=== PATIENT | male | born 1970 | race Caucasian/White ===

== ENCOUNTER 2023-03-13 14:05 | Emergency (ER) | payer SELFPAY ==
[2023-03-13 14:28] VITALS: BP 185/96; PULSE 86; RESP 18; TEMP 36.7; O2SAT 99
[2023-03-13 15:24] LABS: Basophils # 0.1 10^3/uL (0.0-0.1); Basophils % 0.8 %; Eosinophils # 0.2 10^3/uL (0.0-0.8); Eosinophils % 2.3 %; Hematocrit 41.2 % (37-53); Lymphocytes % 15.7 %; Mean Corpuscular HGB Conc 34.5 g/dL (30-55); Mean Corpuscular Hemoglobin 30.5 pg (27-33); Mean Corpuscular Volume 88.6 fl (82-101); Mean Platelet Volume 11.8 fL (7.4-10.4); Monocytes # 0.8 10^3/uL (0.2-0.9); Monocytes % 11.3 %; Neutrophils # 4.59 10^3/uL (1.8-7.7); Neutrophils % 69.3 %; Nucleated Red Blood Cells % 0 %; Platelet Count 272 10^3/cmm (157-399); Red Blood Count 4.65 10^6/uL (3.85-5.65); Red Cell Distribution Width 12.1 % (12.1-15.1); White Blood Count 6.62 10^3/uL (3.29-11.43)
--- NOTE | 2023-03-13 15:35 | USR_ITS ---
PROCEDURE INFORMATION: Exam: US Right Non-Vascular Joint or Other Extremity Structure Exam date and time: 03/13/2023 4:33 PM Age: 52 years old Clinical indication: Pain; Hip; Right; Prior surgery; Surgery date: 6+ months; Surgery type: Necrotizing fascitis in RT leg; Additional info: R groin abscess TECHNIQUE: Imaging protocol: Right US joint or other nonvascular extremity structure or structures. Real-time ultrasound with image documentation. Limited study. Exam focused on the lower extremity in the region of clinical interest. COMPARISON: No relevant prior studies available. FINDINGS: Soft tissues: Targeted imaging of the right groin. Approximate 2.5 x 2.9 x 6.2 cm in homogeneous irregular-shaped complicated soft tissue fluid collection. No internal vascularity. US/US soft tissue/extremity 00056 IMPRESSION: 1. 6.2 cm complicated soft tissue fluid collection in the right groin. This could represent a hematoma or abscess.
--- NOTE | 2023-03-13 15:36 | ED_ITS ---
HPI - Skin/Abscess/Foreign Bdy General: Chief complaint: Skin/Abscess/Foreign Body Stated complaint: groin infection Time Seen by Provider: 03/13/23 14:50 Source: patient Mode of arrival: ambulatory History of Present Illness: 52-year-old male presents emergency room with swelling in the right groin. 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 It is tender to the touch mildly reddened he denies any fever sweats or chills at home no drainage from the wound. He did have a small abscess in the left axilla that he incised and drained with a pen at home. MD complaint: abscess/boil Onset (ago): week(s) (2) Severity: moderate Quality: sharp Pain Consistency: constant Relieving factors: none Exacerbating factors: palpation Associated symptoms: Deny arthralgias, chills, cough, fever(s), itching, myalgias, nausea, rigidity, short of breath or vomiting Review of Systems Const: Denies: fever(s) or chills Card: Denies: chest pain Resp: Denies: dyspnea GI: Denies: nausea or vomiting : Denies: dysuria, urinary frequency or urinary urgency Musc: Denies: neck pain or back pain Skin/Breast: Denies: rash PFS ED PFSH: Medical History (Updated 03/13/23 @ 17:05 by Juanpablo Lopez DO) Diabetes Physical Exam Const: GENERAL APPEARANCE: cooperative and comfortable ORIENTATION/CONSCIOUSNESS: Yes awake, Yes oriented to person, Yes oriented to pl duc and Yes oriented to time HENMT: COMMON NORMALS: normocephalic, atraumatic and hearing grossly normal bilaterally HEAD & SCALP: normocephalic and atraumatic Resp: COMMON NORMALS: normal respiratory effort, No retractions, No use of accessory muscles and clear to auscultation bilaterally AUSCULTATION: clear to auscultation bilaterally Cardio: COMMON NORMALS: regular rate, regular rhythm and No murmurs present (Cardio) RATE: regular rate RHYTHM: regular rhythm GI: COMMON NORMALS: Soft to palpation and No hepatosplenomegaly present AUSCULTATION: Yes normoactive bowel sounds PALPATION: Yes Soft to palpation, No Tenderness to palpation present (GI), No Guarding due to palpation present (GI) and Yes No hepatosplenomegaly present Extremity: COMMON NORMALS: normal to inspection, capillary refill normal, no clubbing, cyanosis or edema, no calf tenderness and no pedal edema Neuro: SENSORIUM/ORIENTATION: Yes oriented to person, Yes oriented to place and Yes oriented to time Skin: OTHER: Reason nodular mass within the right ankle area about 6 inches of the leg 2 to 3 inches in width exquisitely tender to the touch. Course Vital Signs: Vital signs: Vital Signs Temperature 98.0 F 03/13/23 14:28 Pulse Rate 86 03/13/23 14:28 Respiratory Rate 18 03/13/23 14:28 Blood Pressure 185/96 03/13/23 14:28 Pulse Oximetry 99 03/13/23 14:28 Oxygen Delivery Me thod Room Air 03/13/23 14:28 MDM - Skin/Abscess/Foreign Bdy Medicial Decision Making Ultrasound reviewed. Question hematoma or abscess. It is not red and inflamed and he is normal white count. It is within scar tissue of his previous debridement for necrotizing fasciitis. It is mildly tender to the touch and appears to be mostly exteriorized does not appear to be in the deep tissue. Discussed with on-call surgery at this point did not think it is emergent but it does not need to be drained. We will start him on some oral antibiotics pain medications and then have him follow-up with surgery tomorrow we confirmed an appointment tomorrow at the general surgery office and relayed to the patient. Return if he has fevers. Dr. Le is planning to address as an outpatient setting. Medical Records I reviewed the patient's medical records. Lab Data I reviewed the patient's lab results. 03/13/23 15:05 03/13/23 15:05 Radiology Impressions Soft Tissue Ultrasound 03/13/23 15:35 IMPRESSION: 1. 6.2 cm complicated soft tissue fluid collection in the right groin. This could represent a hematoma or abscess. Laboratory Results WBC 6.62 10^3/uL (3.29-11.43) 03/13/23 15:05 RBC 4.65 10^6/uL (3.85-5.65) 03/13/23 15:05 Hgb 14.20 g/dL (11.27-16.99) 03/13/23 15:05 Hct 41.2 % (37-53) 03/13/23 15:05 MCV 88.6 fl (82-101) 03/13/23 15:05 MCH 30.5 pg (27-33) 03/13/23 15:05 MCHC 34.5 g/dL (30-55) 03/13/23 15:05 RDW 12.1 % (12.1-15.1) 03/13/23 15:05 Plt Count 272 10^3/cmm (157-399) 03/13/23 15:05 MPV 11.8 fL (7.4-10.4) H 03/13/23 15:05 Neut % (Auto) 69.3 % 03/13/23 15:05 Lymph % (Auto) 15.7 % 03/13/23 15:05 [place] % (Auto) 11.3 % 03/13/23 15:05 Eos % (Auto) 2.3 % 03/13/23 15:05 Baso % (Auto) 0.8 % 03/13/23 15:05 Neut # (Auto) 4.59 10^3/uL (1.8-7.7) 03/13/23 15:05 Lymph # (Auto) 1.0 10^3/uL (0.8-4.8) 03/13/23 15:05 [place] # (Auto) 0.8 10^3/uL (0.2-0.9) 03/13/23 15:05 Eos # (Auto) 0.2 10^3/uL (0.0-0.8) 03/13/23 15:05 Baso # (Auto) 0.1 10^3/uL (0.0-0.1) 03/13/23 15:05 Nucleated RBC % (auto) 0 % 03/13/23 15:05 Nucleated RBCs # 0.0 /100WBC 03/13/23 15:05 Sodium 132 mmol/L (136-145) L 03/13/23 15:05 Potassium 4.6 mmol/L (3.5-5.1) 03/13/23 15:05 Chloride 96 mmol/L (98-107) L 03/13/23 15:05 Carbon Dioxide 26 mmol/L (22-29) 03/13/23 15:05 Anion Gap 14.6 (5-19) 03/13/23 15:05 BUN 13 mg/dL (6-20) 03/13/23 15:05 Creatinine 0.9 mg/dL (0.7-1.2) 03/13/23 15:05 GFR Calculation 89.3 mL/min (90-130) L 03/13/23 15:05 Glucose 499 mg/dL (65-115) H 03/13/23 15:05 Calculated Osmolality 296 mOsm/kg (285-295) H 03/13/23 15:05 Calcium 9.1 mg/dL (8.5-10.5) 03/13/23 15:05 All radiology interpretation(s) finalized by discharge Discharge Plan Discharge Patient Disposition: Home Clinical Impression: Abscess of skin or subcutaneous tissue Condition: Stable Prescriptions: New Bactrim DS 800-160 mg tablet 2 tab PO DAILY 7 Days Qty: 14 0RF hydrocodone-acetaminophen 5-325 mg tablet 1 tab PO Q6H PRN (Reason: pain) Qty: 10 0RF No Action atorvastatin 40 mg tablet 40 mg PO QPM metoprolol succinate 100 mg tablet extended release 24 hr 100 mg PO DAILY amlodipine 10 mg tablet 10 mg PO DAILY losartan 25 mg tablet 25 mg PO DAILY gabapentin 300 mg capsule 600 mg PO TID insulin lispro 100 unit/mL insulin pen See Rx Instructions .ROUTE .COMPLEX Rx Instructions: subcutaneously ;as directed per sliding scale Lantus Solostar U-100 Insulin 100 unit/mL (3 mL) insulin pen 50 unit SUBCUT DAILY Farxiga 10 mg tablet 10 mg PO DAILY Discharge Orders: Discharge ED (Routine); Ordered 03/13/23 Ordered By: Juanpablo Lopez Discharge Diet: Usual diet Discharge Activity: Resume usual activity Patient Instructions: Opioid Safety, Pain Management Activity Restrictions/Additional Instructions: You were seen today for swelling in the right groin ultrasound shows a abscess. Discussed the case with the general surgeon on-call he will see you tomorrow at 1:00 and plan for elective incision and drainage. In the meantime you were given a prescription for antibiotics 2 pills twice a day. Also gave a prescription for pain medications. Coding Level of Care Code ED [employer] Supervisor for Alex Reyes
[2023-03-13 15:50] LABS: Anion Gap 14.6 (5-19); Blood Urea Nitrogen 13 mg/dL (6-20); Calcium 9.1 mg/dL (8.5-10.5); Carbon Dioxide 26 mmol/L (22-29); Chloride 96 mmol/L (98-107); Glomerular Filtration Rate 89.3 mL/min (90-130); Glucose 499 mg/dL (65-115); Osmolality Calculated 296 mOsm/kg (285-295); Potassium 4.6 mmol/L (3.5-5.1); Sodium 132 mmol/L (136-145)
== END 2023-03-13 17:24 | disposition home or self-care (01) ==
PROVIDERS: Emergency Provider Family Medicine
DX: L02.214 Cutaneous abscess of groin (principal); Z79.4 Long term (current) use of insulin; E11.9 Type 2 diabetes mellitus without complications
CPT/HCPCS: 36415; 76882; 80048; 85025; 99284

== ENCOUNTER → 2023-03-14 12:46 | Outpatient (BNVA) | payer SELFPAY | PROVIDERS: Visit Provider Surgery | DX: L02.91 Cutaneous abscess, unspecified (principal) | CPT/HCPCS: 87070; 87075; 87077; 87186; 87205 ==